=== PATIENT | female | born 1985 | race Caucasian/White ===

== ENCOUNTER 2017-11-22 18:30 | Emergency (ER) | payer MEDICAID ==
[2017-11-22 18:46] VITALS: RESP 17; O2SAT 100; BMI 25.6
--- NOTE | 2017-11-22 20:56 | ED PDOC ---
Arrival/HPI - General Historian: Patient - History of Present Illness Narrative History of Present Illness (Text): 32 y/o female with no significant PMH who presents to the ED c/o right-sided headache x 3 hours. Pt states she had sudden onset of 10/10 headache over right jewish with associated pressure behind the eyes b/l. Pt took 800mg ibuprofen 2 hours ago with some relief. Now complaing of 6/10 pain. She had a similar headache in the same location a few weeks ago that went away with Alieve and rest. She is adamantly asking for a ct scan of the head. Denies aura, visual changes, nausea, vomiting, fever, chills, neck pain, back pain, photophobia, shortness of breath, chest pain, palpitations, syncope, weakness, changes in speech, difficulty walking, paresthesias, numbness, rhinorrhea, sore throat, jaw claudication, abdominal pain. <Hayley Albert - Last Filed: 11/23/17 19:58> <Cuco Turner - Last Filed: 11/26/17 13:38> - General Chief Complaint: Headache Time Seen by Provider: 11/22/17 20:13 Past Medical History - Provider Review Nursing Documentation Reviewed: Yes - Endocrine/Metabolic Hx Endocrine Disorders: Yes Hx Systemic Lupus Erythematosus: Yes - Hematological/Oncological Hx Blood Disorders: Yes Hx Anemia: Yes - Psychiatric Hx Substance Use: No - Surgical History Hx Section: Yes (x 2) Hx Tonsillectomy: Yes Other/Comment: Liposuction in April - Anesthesia Hx Anesthesia: Yes <Hayley Albert - Last Filed: 11/23/17 19:58> Family/Social History - Physician Review Nursing Documentation Reviewed: Yes Family/Social History: No Known Family HX Smoking Status: Never Smoked Hx Alcohol Use: Yes Frequency of alcohol use: Socially Hx Substance Use: No <Hayley Albert - Last Filed: 11/23/17 19:58> Allergies/Home Meds <Hayley Albert - Last Filed: 11/23/17 19:58> <Cuco Turner - Last Filed: 11/26/17 13:38> Allergies/Adverse Reactions: Allergies Sulfa (Sulfonamide Antibiotics) Allergy (Verified 11/22/17 18:45) URTICARIA Review of Systems - Physician Review All systems were reviewed & negative as marked: Yes - Review of Systems Constitutional: Normal. absent: Fevers Eyes: Other ("pressure" behind eyes). absent: Vision Changes, Photophobia, Eye Pain ENT: Normal. absent: Hearing Changes, Sore Throat, Rhinorrhea, Epistaxis, Sinus Congestion Respiratory: Normal. absent: SOB, Cough Cardiovascular: Normal. absent: Chest Pain, Palpitations, Syncope Gastrointestinal: Normal. absent: Abdominal Pain, Constipation, Diarrhea, Nausea, Vomiting, Appetite Changes Genitourinary Female: Normal. absent: Dysuria, Frequency, Vaginal Bleeding, Vaginal Discharge Musculoskeletal: Normal. absent: Back Pain, Neck Pain Skin: Normal. absent: Rash, Skin Lesions Neurological: Headache. absent: Dizziness, Focal Weakness, Gait Changes, Speech Changes, Facial Droop, Disequilibrium, Seizure Endocrine: absent: Diaphoresis Hemo/Lymphatic: absent: Adenopathy Psychiatric: absent: Anxiety <Hayley Albert - Last Filed: 11/23/17 19:58> Physical Exam Vital Signs Reviewed: Yes Vital Signs Temp Pulse Resp BP Pulse Ox 11/22/17 18:45 97.9 F 72 17 125/80 100 Temperature: Afebrile Blood Pressure: Normal Pulse: Regular Respiratory Rate: Normal Appearance: Positive for: Well-Appearing, Non-Toxic, Comfortable Pain Distress: None Mental Status: Positive for: Alert and Oriented X 3 - Systems Exam Head: Present: Atraumatic, Normocephalic. No: Tenderness, Contusion, Swelling, Ecchymosis, Abrasion, Laceration Pupils: Present: PERRL Extroacular Muscles: Present: EOMI Conjunctiva: Present: Normal Ears: Present: Normal, NORMAL TM, Normal Canal. No: Erythema, TM Bulging, TM Perf Mouth: Present: Moist Mucous Membranes. No: Dry Pharnyx: Present: Normal. No: ERYTHEMA, EXUDATE, TONSILS ENLARGED Nose (External): Present: Atraumatic Nose (Internal): Present: Normal Inspection, Moist Neck: Present: Normal Range of Motion. No: Meningeal Signs, MIDLINE TENDERNESS, Paraspinal Tenderness, Lymphadenopathy Cardiovascular: Present: Regular Rate and Rhythm, Normal S1, S2, Peripheal Pulses Present. No: Murmurs Abdomen: Present: Normal Bowel Sounds. No: Tenderness, Distention, Peritoneal Signs Back: Present: Normal Inspection. No: Midline Tenderness, Paraspinal Tenderness Upper Extremity: Present: Normal Inspection, Normal ROM, NORMAL PULSES. No: Cyanosis, Edema Lower Extremity: Present: Normal Inspection, NORMAL PULSES, Normal ROM. No: Edema Neurological: Present: GCS=15, CN II-XII Intact, Speech Normal, Motor Func Grossly Intact, Normal Sensory Function, Normal Cerebellar Funct, Gait Normal, Memory Normal Skin: Present: Warm, Dry, Normal Color. No: Rashes Lymphatic: No: Cervical Adenopathy Psychiatric: Present: Alert, Oriented x 3, Normal Insight, Normal Concentration <Hayley Albert - Last Filed: 11/23/17 19:58> Vital Signs Temp Pulse Resp BP Pulse Ox 11/22/17 22:30 98.0 F 89 17 127/72 100 11/22/17 18:45 97.9 F 72 17 125/80 100 <Cuco Turner - Last Filed: 11/26/17 13:38> Medical Decision Making ED Course and Treatment: 11/22/17 20:14 32 y/o female with no significant PMH who presents to the ED c/o right-sided headache x 3 hours. Pt states she had sudden onset of 10/10 headache over right jewish with associated pressure behind the eyes b/l. Pt took 800mg ibuprofen 2 hours ago with some relief. Now complainng of 6/10 pain. She had a similar headache in the same location a few weeks ago that went away with Alieve and rest. She is adamantly asking for a cat scan of the head. Denies aura, visual changes, neck pain, back pain, nausea, vomiting, fever, chills, photophobia, shortness of breath, chest pain, palpitations, syncope, weakness, changes in speech, difficulty walking, paresthesias, numbness, rhinorrhea, sore throat, jaw claudication, abdominal pain. Physical exam: Normal vitals. Normal cardiac, pulmonary, eye, and neuro exam. Scalp is atraumatic and non-tender. Discussed the benefits and risks of Head CT with pt including risk of radiation exposure. Pt understands risks and is still asking for head CT. Pt now wishing to leave [facility] because she is unwilling to wait for head CT Pts mother arrived and convinced pt to stay and receive head CT will CT head Pt offered medications to relieve headache including IV fluids, tylenol, benadryl, and reglan. Pt denies all medications at this time. 21:00 Pt now asking for pain medications Will give migraine cocktail: PO tylenol, PO reglan, PO benadryl CT- Brain Electronically signed on Nov 22, 2017 10:04:05 PM EDT by: Angelo Ndiaye M.D., Certified by [facility] Findings: No CT evidence of acute pathology of the brain is identified. There is no evidence of brain herniation, obstructive hydrocephalus, cerebral edema, acute intracranial hemorrhage, or abnormal subdural fluid collection. Acute brain infarction may not be detected by CT, particularly within the first 24-48 hours. No acute calvarial abnormality is detected. No air- fluid levels re seen in the paranasal sinuses. The mastoid air cells appear clear. No significant a bnormality of the orbits is identified. Impression: No evidence of acute intracranial patholology detected. Had lengthy discussion with pt about appropriate followup and signs/symptoms to look for to return to Emergency department (high fever, visual changes, weakness, paresthesias, difficulty speaking, numbness). Impression: Headache Plan: Increase fluids Take 600mg Ibuprofen every 6 hours as needed for pain Followup with primary care doctor within 2 days Return to ED if symptoms persist or worsen Plan discussed with pt and family, who agree and understand. Pt comfortable with discharge home. CT report printed for pt to bring to primary doctor. 11/23/17 15:32 - RAD Interpretation Radiology Orders: 11/22/17 20:13 HEAD W/O CONTRAST [CT] Stat <Hayley Albert - Last Filed: 11/23/17 19:58> - RAD Interpretation Radiology Orders: 11/22/17 20:13 HEAD W/O CONTRAST [CT] Stat - Medication Orders Current Medication Orders: Discontinued Medications Acetaminophen (Tylenol 325mg Tab) 650 mg PO STAT STA Stop: 11/22/17 20:57 Last Admin: 11/22/17 21:26 Dose: 650 mg Diphenhydramine HCl (Benadryl) 25 mg PO STAT STA Stop: 11/22/17 20:59 Last Admin: 11/22/17 21:25 Dose: 25 mg Metoclopramide HCl (Reglan) 10 mg PO STAT STA Stop: 11/22/17 20:58 Last Admin: 11/22/17 21:26 Dose: 10 mg <Cuco Turner - Last Filed: 11/26/17 13:38> - 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 <Cuco Turner - Last Filed: 11/26/17 13:38> Disposition/Present on Arrival - Present on Arrival Any Indicators Present on Arrival: No History of DVT/PE: No History of Uncontrolled Diabetes: No Urinary Catheter: No History of Decub. Ulcer: No History Surgical Site Infection Following: None - Disposition Have Diagnosis and Disposition been Completed?: Yes Disposition Time: 22:00 <Hayley Albert - Last Filed: 11/23/17 19:58> <Cuco Turner - Last Filed: 11/26/17 13:38> - Disposition Diagnosis: Headache Disposition: HOME/ ROUTINE Condition: GOOD Discharge Instructions (ExitCare): Headache, Adult Additional Instructions: Increase fluids Take 600mg Ibuprofen every 6 hours as needed for pain Followup with primary care doctor within 2 days Return to ED if symptoms persist or worsen Prescriptions: RX: Ibuprofen [Motrin Tab] 600 mg PO Q6H PRN #20 tab PRN Reason: Pain, Mild (1-3) Referrals: Isabel Tenorio MD [Medical Doctor] - Follow up with primary Latosha Jacques MD [Staff Provider] - Follow up with primary Forms: [employer] [employer] [facility] (Portuguese), WORK NOTE
[2017-11-22] MEDS ORDERED: DiphenhydrAMINE 12.5 mg/5 ml LIQ UD (5 ml) PO STA (20:58)
[2017-11-22 22:31] VITALS: BP 127/72; PULSE 89; TEMP 98
--- NOTE | 2017-11-23 11:43 | CT ---
Date of service: 11/22/2017 PROCEDURE: CT HEAD WITHOUT CONTRAST. HISTORY: headache COMPARISON: None available. TECHNIQUE: Axial computed tomography images were obtained through the head/brain without intravenous contrast. Radiation dose: Total exam DLP = 902.6 mGy-cm. This CT exam was performed using one or more of the following dose reduction techniques: Automated exposure control, adjustment of the mA and/or kV according to patient size, and/or use of iterative reconstruction technique. FINDINGS: HEMORRHAGE: No intracranial hemorrhage. BRAIN: No mass effect or edema. No atrophy or chronic microvascular ischemic changes. VENTRICLES: Unremarkable. No hydrocephalus. CALVARIUM: Unremarkable. PARANASAL SINUSES: Unremarkable as visualized. No significant inflammatory changes. MASTOID AIR CELLS: Unremarkable as visualized. No inflammatory changes. OTHER FINDINGS: None. IMPRESSION: No acute intracranial pathology.
== END 2017-11-22 22:31 | disposition home or self-care (01) ==
LOC: ED 18:30
DX: R51 Headache (principal)